=== PATIENT | female | born 1995 | race African-American/Black ===

== ENCOUNTER 2018-02-15 20:21 | Emergency (ER) | payer MEDICAID ==
[~2018-02-15] VITALS: Ht 165.1 cm; Wt 69.9 kg
[2018-02-15 21:37] LABS: Basophils # (auto) 0 uL; Eosinophils # (auto) 0 uL; Eosinophils % (auto) 0.4 % (0.0-7.0); Hemoglobin 11.7 g/dL (12.2-16.2); Mean Corpuscular Hemoglobin 26.4 pg (28.0-32.0); Monocytes # (auto) 0.7 uL; White Blood Cell 10.7 10^3/uL (4.4-10.8)
[2018-02-15 21:39] LABS: Basophils % (auto) 0.1 % (0.0-2.0); Hematocrit 35.6 % (36.0-46.0); Lymphocytes # (auto) 1.8 uL; Lymphocytes % (auto) 16.5 % (10.0-50.0); Mean Corpuscular Hgb Conc. 32.9 g/dL (32.0-36.0); Mean Corpuscular Volume 80.2 fL (80.0-100.0); Neutrophils # (auto) 8.1 uL; Platelet Count (auto) 262 10^3/uL (140-450); Red Blood Cells 4.44 10^6/uL (4.0-5.20)
[2018-02-15 21:57] LABS: Albumin 3.3 g/dL (3.4-5.0); BUN/Creatinine Ratio 13.3; Calcium 9.2 mg/dL (8.5-10.1); Potassium 3.8 mmol/L (3.5-5.1)
[2018-02-15 22:00] LABS: Bilirubin, Total 0.2 mg/dL (0.2-1.0); Total Protein 7.4 g/dL (6.4-8.2)
[2018-02-15 22:03] LABS: Urine Bacteria FEW /hpf (None Seen); Urine Blood Negative /uL (Negative); Urine Specific Gravity 1.017 (1.001-1.035); Urine WBC 1 /hpf (0 - 5)
[2018-02-16 06:38] VITALS: BP 112/59
[2018-02-16] MEDS ORDERED: ACETAMINOPHEN 325 MG TAB PO ONE (06:45)
== END 2018-02-16 06:54 | disposition home or self-care (01) ==
LOC: ER 20:21
DX: O9A.212 Injury, poisoning and certain other consequences of external causes complicating pregnancy, second trimester (principal); S39.012A Strain of muscle, fascia and tendon of lower back, initial encounter; Z3A.15 15 weeks gestation of pregnancy; V43.52XA Car driver injured in collision with other type car in traffic accident, initial encounter; Y93.89 Activity, other specified; Y92.89 Other specified places as the place of occurrence of the external cause; Y99.8 Other external cause status
CPT/HCPCS: 36415; 76805; 80053; 81001; 84702; 85025

== ENCOUNTER 2019-05-24 10:16 | Emergency (ER) | payer MEDICAID ==
[~2019-05-24] VITALS: Ht 165.1 cm; Wt 72.6 kg
[2019-05-24 10:28] VITALS: BP 114/64
[2019-05-24 12:48] LABS: Urine Bacteria FEW /hpf (None Seen); Urine Blood 2+ /uL (Negative); Urine Budding Yeast OCCASIONAL /hpf (None Seen); Urine Mucus FEW (None Seen); Urine Specific Gravity 1.026 (1.001-1.035); Urine WBC 56 /hpf (0 - 5)
[2019-05-24] MEDS ORDERED: ACETAMINOPHEN 325 MG TAB PO ONE (13:00)
[2019-05-24] MEDS ORDERED: cefTRIAXone SOD 1,000 MG VL IM ONE (13:00)
== END 2019-05-24 13:37 | disposition home or self-care (01) ==
LOC: ER 10:27
DX: N76.0 Acute vaginitis (principal); N39.0 Urinary tract infection, site not specified; Z20.2 Contact with and (suspected) exposure to infections with a predominantly sexual mode of transmission
CPT/HCPCS: 81001; 81025; 87210; 96372; 99283; J0696

== ENCOUNTER 2019-09-07 11:20 | Emergency (ER) | payer MEDICAID ==
[~2019-09-07] VITALS: Ht 165.1 cm; Wt 66.7 kg
[2019-09-07 11:33] VITALS: BP 134/82
== END 2019-09-07 13:24 | disposition home or self-care (01) ==
LOC: ER 11:20
DX: S60.811A Abrasion of right wrist, initial encounter (principal); L25.9 Unspecified contact dermatitis, unspecified cause; X58.XXXA Exposure to other specified factors, initial encounter; Y93.89 Activity, other specified; Y99.8 Other external cause status; Y92.89 Other specified places as the place of occurrence of the external cause
CPT/HCPCS: 81002; 81025

== ENCOUNTER 2019-09-27 05:09 | Emergency (ER) | payer MEDICAID ==
[~2019-09-27] VITALS: Ht 165.1 cm; Wt 65.8 kg
[2019-09-27 05:30] VITALS: BP 149/95
== END 2019-09-27 07:48 | disposition left against medical advice (07) ==
LOC: ER 05:09
DX: S30.810A Abrasion of lower back and pelvis, initial encounter (principal); J06.9 Acute upper respiratory infection, unspecified; X58.XXXA Exposure to other specified factors, initial encounter; Y93.89 Activity, other specified; Y92.89 Other specified places as the place of occurrence of the external cause; Y99.8 Other external cause status